=== PATIENT | female | born 1960 | race Caucasian/White ===

== ENCOUNTER 2023-03-26 08:44 | Day surgery (SDC) | payer BC ==
[~2023-03-26] VITALS: Ht 157.5 cm; Wt 79.4 kg
[~2023-03-26 08:44] MED LIST: CEFAZOLIN SOD 2 GM in D5W 50 ML IV ONE
[2023-03-26 10:18] LABS: BASOPHILS % (AUTO) 0.5 % (0.0-2.0); EOSINOPHILS # (AUTO) 0.1 K/uL (0.0-0.4); EOSINOPHILS % (AUTO) 2.3 % (0.0-4.0); HEMOGLOBIN 14.1 g/dL (12.0-16.0); LYMPHOCYTES # (AUTO) 2.3 K/uL (1.0-5.5); LYMPHOCYTES % (AUTO) 35.1 % (20.5-51.5); MEAN CORPUSCULAR HEMOGLOBIN 31 pg (27-31); MEAN CORPUSCULAR HGB CONC 34 % (32-36); MEAN CORPUSCULAR VOLUME 93 fL (79.0-98.0); MONOCYTES # (AUTO) 0.5 K/uL (0.0-1.0); MONOCYTES % (AUTO) 8.3 % (1.7-9.3); NEUTROPHILS # (AUTO) 3.5 K/uL (1.8-7.7); NEUTROPHILS % (AUTO) 53.8 % (40.0-70.0); PLATELET COUNT (AUTO) 175 K/uL (130-430); RED BLOOD CELL COUNT(AUTO) 4.54 MIL/uL (4.2-6.2); RED CELL DISTRIBUTION WIDTH 13.1 % (9.0-15.0); WHITE BLOOD COUNT (AUTO) 6.4 K/uL (4.8-10.8)
[2023-03-26 10:31] LABS: CREATININE 0.86 mg/dL (0.55-1.30)
[2023-03-26 10:35] LABS: ALBUMIN 3.6 g/dL (3.4-4.8); PROTHROMBIN TIME 10.6 SECS (9.5-12.5); TOTAL BILIRUBIN 0.6 mg/dL (0.0-1.0)
[2023-03-26] MEDS ORDERED: NORMAL SALINE 10 ML VIAL ONE (11:45)
[2023-03-26] MEDS ORDERED: LR 1,000 ML IV.SOLN IV ONE (11:45)
[2023-03-26] MEDS ORDERED: NS IRRIG SOLN 1000 ML IR ONE (11:45)
[2023-03-26] MEDS ORDERED: SEVOFLURANE 15 MIN GAS INH ONE (11:45)
[2023-03-26] MEDS ORDERED: ONDANSETRON HCL 4 MG/2 ML VIAL ONE (11:45)
[2023-03-26] MEDS ORDERED: MEPERIDINE 50 MG/ML VIAL ONE (11:45)
[2023-03-26] MEDS ORDERED: PROPOFOL 200MG/ 20ML VIAL (DIPRIVAN) IV ONE (11:45)
[2023-03-26] MEDS ORDERED: WATER FOR IRRIGATION,STERILE 1,000 ML IRRIG.SOLN IR ONE (11:45)
[2023-03-26] MEDS ORDERED: fentaNYL CITRATE/PF 100 MCG/2 ML AMP ONE (11:45)
[2023-03-26] MEDS ORDERED: BUPIVACAINE /EPINEPHRINE/PF 0.5% 30 ML VIAL INJ ONE (11:45)
[2023-03-26] MEDS ORDERED: HYDROmorphone 1 MG/ML INJ. CARTRIDGE IVP PRN (12:30)
[2023-03-26] MEDS ORDERED: ONDANSETRON HCL 4 MG/2 ML VIAL IVP PRN ×2 (12:30→14:15)
[2023-03-26] MEDS ORDERED: MEPERIDINE HCL/PF 25 MG/ML DISP.SYRIN IVP PRN (12:30)
[2023-03-26] MEDS ORDERED: LR 1,000 ML IV SCH (12:30)
[2023-03-26] MEDS ORDERED: METOCLOPRAMIDE HCL 10 MG/2 ML VIAL IVP PRN (12:30)
[2023-03-26] MEDS ORDERED: BUPIVACAINE LIPOSOME/PF 266 MG/20 ML VIAL INFIL ONE (13:14)
[2023-03-26] MEDS ORDERED: ACETAMINOPHEN 325 MG TABLET PO PRN (14:15)
[2023-03-26] MEDS: LR 1,000 ML IV SCH ×2 (14:15→21:15)
[2023-03-26 15:50] VITALS: BP_SYST 128
[2023-03-26 16:00] VITALS: BP_SYST 126
[2023-03-26] MEDS: MORPHINE 2 MG/ML INJ. SYRINGE IVP PRN ×2 (16:05→21:45)
[2023-03-26] MEDS ORDERED: ASPI-1393 PO (16:35)
[2023-03-26] MEDS ORDERED: FURO10VI27 PO (16:35)
[2023-03-26] MEDS ORDERED: LEVO100T PO (16:35)
[2023-03-26] MEDS ORDERED: CLOP75TA32 PO (16:35)
[2023-03-26] MEDS ORDERED: LORA-258 PO (16:35)
[2023-03-26] MEDS ORDERED: COR3.125 PO (16:35)
[2023-03-26] MEDS ORDERED: SACU1TAB7 PO (16:52)
[2023-03-26] MEDS ORDERED: EVOL140P3 SQ (16:52)
[2023-03-26] MEDS: HYDROcodone/ACETAMIN 5-325 MG TAB (NORCO/ VICODIN) PO PRN (18:41)
[2023-03-26 18:44] VITALS: BP_SYST 128
[2023-03-26 19:40] VITALS: BP_SYST 111
[2023-03-26] MEDS: ceFAZolin SODIUM 1 GM in D5W 50 ML IV SCH (21:15)
[2023-03-26] MEDS ORDERED: ceFAZolin SODIUM 2 GM in D5W 100 ML IV SCH (22:00)
[2023-03-26] MEDS ORDERED: ZOLPIDEM TARTRATE 5 MG TABLET PO PRN (22:45)
[2023-03-27 00:30] VITALS: BP_SYST 139
[2023-03-27] MEDS: ceFAZolin SODIUM 1 GM in D5W 50 ML IV SCH ×2 (05:12→13:41)
[2023-03-27 08:15] VITALS: BP_SYST 138
[2023-03-27] MEDS: HYDROcodone/ACETAMIN 5-325 MG TAB (NORCO/ VICODIN) PO PRN ×2 (09:20→14:41)
[2023-03-27] MEDS: MORPHINE 2 MG/ML INJ. SYRINGE IVP PRN (10:25)
[2023-03-27] MEDS ORDERED: HYDR-3919 PO (11:19)
[2023-03-27 12:43] VITALS: BP_SYST 125
[2023-03-27 13:05] VITALS: BP_SYST 121
[2023-03-27] MEDS ORDERED: ONDANSETRON 4 MG ODT TAB PO PRN (14:45)
== END 2023-03-27 15:30 | disposition home or self-care (01) ==
LOC: SMU 08:44 → SDS 08:44 → STU 14:39 → SDS 03-27 15:30
PROVIDERS: ATTEND Surgery
DX: D17.0 Benign lipomatous neoplasm of skin and subcutaneous tissue of head, face and neck (principal); R22.41 Localized swelling, mass and lump, right lower limb; R97.1 Elevated cancer antigen 125 [CA 125]; I50.9 Heart failure, unspecified; E78.5 Hyperlipidemia, unspecified; E66.9 Obesity, unspecified; G47.30 Sleep apnea, unspecified; E03.9 Hypothyroidism, unspecified; Z68.33 Body mass index [BMI] 33.0-33.9, adult; Z79.01 Long term (current) use of anticoagulants; Z79.899 Other long term (current) drug therapy
CPT/HCPCS: 36415; 80053; 85025; 85610-TC; 85730-TC; 87081; 88304; C9290; G0378; J0690; J1170; J2175; J2270; J2405; J2704; J3010; J3490; J7060; J7120; Q0162